=== PATIENT | male | born 1950 | race Caucasian/White ===

== ENCOUNTER 2021-08-03 06:41 | Outpatient (CLI) | payer MEDICARE, OTHER, SELFPAY ==
--- NOTE | ~2021-08-03 | MR_ITS ---
EXAMINATION: MR wrist RT wo con DATE: 08/03/2021 08:09 INDICATION: Chronic pain of right wrist. TECHNIQUE: Magnetic resonance imaging (MRI) of the wrist was performed without intravenous contrast. Sequences performed include coronal T1-weighted FSE, coronal PD-weighted FS FSE, axial PD-weighted FS FSE, axial PD-weighted FSE, sagittal PD-weighted FSE, and sagittal PD-weighted FS FSE. COMPARISON: None FINDINGS: Intrinsic ligaments: There is a full-thickness tear of the proximal (membranous) component of scapholunate ligament. There is a least a partial tear of the dorsal component of scapholunate ligament. Lunotriquetral ligament is intact. Triangular fibrocartilage complex (TFCC): There is a full-thickness tear of triangular fibrocartilage. Extensor wrist: There is mild tendinopathy of extensor carpi ulnaris. Flexor wrist: The flexor tendons are normal. Median nerve is normal. Guyon's canal: Ulnar nerve is normal. Bones/other: There is severe osteoarthritis of distal radioulnar joint, radioscaphoid joint, scaphoid-lunate joint , and scaphotrapezoid joint. Trapezium is absent. 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 There is moderate osteoarthritis of lunate-triquetral joint and pisotriqu etral joint. There is moderate osteoarthritis of radiolunate joint and lunate-capitate joint. There i s severe osteoarthritis of first metacarpophalangeal joint. There are small effusions of distal radio ulnar joint, radiocarpal compartment, and midcarpal compartment. IMPRESSION: 1. Polyarticular osteoarthritis. 2. Tears of scapholunate ligament and triangular fibrocartilage. Reviewed, dictated and finalized at location A. [employer]
== END 2021-08-03 06:42 | disposition home or self-care (01) ==
LOC: ANHIMG 06:47
PROVIDERS: PCP Registered Nurse; Visit Provider Registered Nurse
DX: M25.531 Pain in right wrist (principal); G89.29 Other chronic pain; M19.031 Primary osteoarthritis, right wrist; S63.591A Other specified sprain of right wrist, initial encounter
CPT/HCPCS: 73221